=== PATIENT | male | born 1990 | race African-American/Black ===

== ENCOUNTER 2021-02-19 08:40 | Emergency (ER) | payer OTHER ==
[~2021-02-19] VITALS: Ht 190.5 cm; Wt 97.7 kg
[2021-02-19] MEDS ORDERED: KETOROLAC 60MG 2ML VIAL IM ONE (09:55)
--- NOTE | 2021-02-19 10:48 | REP ---
INDICATION: possible muscle or tendon tear R upper thigh COMPARISON: None TECHNIQUE: Directed B-mode grayscale ultrasound examination using linear high-frequency transducer. FINDINGS: Directed ultrasound examination along the right mid thigh demonstrates normal subcutaneous tissues and underlying musculature. No abnormal fluid collection, inflammatory changes, or further pathology identified by ultrasound. IMPRESSION: Unremarkable directed ultrasound examination. No evidence for fluid collection or secondary findings to suggest muscular/tendinous injury. <Electronically signed by Moy Brooks > 02/19/21 1049
--- NOTE | 2021-02-19 11:17 | REP ---
INDICATION: hips gave out sprinting. COMPARISON: None. TECHNIQUE: Frontal view of the pelvis with neutral and frog-lateral views of the bilateral hips. FINDINGS: Pelvis and bilateral hips are normal in appearance and symmetric. No evidence for congenital or arthritic degenerative changes. No evidence for acute or healed injury. IMPRESSION: Normal pelvic and bilateral hip radiograph series. <Electronically signed by Moy Brooks > 02/19/21 1114
[2021-02-19] MEDS ORDERED: IBUP80TA PO (11:24)
[2021-02-19 11:35] VITALS: BP 135/89
== END 2021-02-19 11:36 | disposition home or self-care (01) ==
LOC: M ED 08:40
DX: S76.312A Strain of muscle, fascia and tendon of the posterior muscle group at thigh level, left thigh, initial encounter (principal); Y92.9 Unspecified place or not applicable; Y93.02 Activity, running; Y99.9 Unspecified external cause status; Z88.1 Allergy status to other antibiotic agents; Z88.2 Allergy status to sulfonamides
CPT/HCPCS: 73521; 76882; 96372; 99284; J1885